=== PATIENT | female | born 1970 | race Caucasian/White ===

== ENCOUNTER 2018-10-05 18:41 | Emergency (ER) | payer BC ==
[~2018-10-05] VITALS: Ht 170.2 cm; Wt 139.5 kg
[2018-10-05 18:49] VITALS: Ht 170.2 cm; Wt 139.5 kg
[2018-10-05] MEDS ORDERED: GLUCOTROL ER2.5 MG PO (18:50)
[2018-10-05] MEDS ORDERED: AZULFIDINE500 MG PO (18:51)
[2018-10-05] MEDS ORDERED: LISINOPRIL-HCT1 EAC7 PO (18:51)
[2018-10-05 20:20] LABS: APPEARANCE CLEAR (CLEAR); BILIRUBIN NEGATIVE (NEGATIVE); COLOR STRAW (YELLOW); GLUCOSE NEGATIVE (NEGATIVE); KETONE NEGATIVE (NEGATIVE); NITRITE NEGATIVE (NEGATIVE); PROTEIN NEGATIVE (NEGATIVE); SPECIFIC GRAVITY 1.015 (1.005-1.020); UROBILINOGEN NORMAL (NORMAL)
[2018-10-05] MEDS ORDERED: TORADOL10 MG PO (21:28)
[2018-10-05 21:50] VITALS: BP 132/79
== END 2018-10-05 21:50 | disposition home or self-care (01) ==
LOC: D.ER 18:41
PROVIDERS: Family Medicine
DX: M54.5 Low back pain (principal); K51.90 Ulcerative colitis, unspecified, without complications; E11.9 Type 2 diabetes mellitus without complications; I10 Essential (primary) hypertension; F17.200 Nicotine dependence, unspecified, uncomplicated